=== PATIENT | male | born 1985 | race African-American/Black ===

== ENCOUNTER 2021-10-30 14:35 | Outpatient (CLI) | payer OTHER ==
--- NOTE | 2021-10-30 17:29 | MRI Report ---
PROCEDURE: Hip RT W/O INDICATIONS: RIGHT HIP PAIN TECHNIQUE: Noncontrast coronal T1 spin echo and STIR through the bony pelvis. Coronal and axial T2 fast spin ec ho with fat saturation, sagittal T1 spin echo, and oblique axial T2 fast spin echo with fat saturatio n through the hip. COMPARISON: None. FINDINGS: Image quality: Diagnostic. Bones and joints: Bone marrow of the pelvic ring and proximal femurs demonstrate normal overall sign al. No bone contusions or fractures. No suspicious intraosseous lesions. No avascular necrosis of th e femoral heads. No joint effusions. The visualized lower lumbar spine appears normally aligned. Tendons: The gluteus medius and minimus tendons appear intact, without associated muscle atrophy. T here is mild peritendinous edema along the distal gluteal tendons at the greater trochanter without a discrete loculated bursal fluid collection. The iliopsoas tendon appears intact, without adjacent bu rsal fluid collections. The origin of the hamstring tendon is intact at the ischial tuberosity. Labrum and cartilage: There is suspected mild tearing in the anterosuperior labrum with evaluation li mited in the absence of intra-articular contrast. Cartilage surface of the femoral head demonstrates mild thinning superiorly. The alpha angle of the femur is within normal limits at less than 55 degre es. Soft tissues: Visualized muscles demonstrate normal bulk and internal signal. The proximal sciatic neurovascular bundle appears normal adjacent to the hamstring tendons. No free pelvic fluid. Bladde r wall thickness is normal. Genitourinary structures and bowel loops appear normal where visualized. IMPRESSION: 1. Suspected mild tearing in the anterosuperior labrum with evaluation limited in the absence of intr athecal contrast. Reviewed by: Carrillo Gusman MD on 10/30/2021 5:28 PM PST Approved by: Carrillo Gusman MD on 10/30/2021 5:28 PM PST Station ID: [id number]
== END 2021-10-30 14:36 | disposition home or self-care (01) ==
LOC: DI 14:35
PROVIDERS: ATTEND Student in an Organized Health Care Education/Training Program
DX: M25.551 Pain in right hip (principal)

== ENCOUNTER 2021-11-09 12:47 | Outpatient (CLI) | payer OTHER ==
[2021-11-09 13:39] VITALS: BP 132/74
--- NOTE | 2021-11-09 13:39 | SLEEP CARE CONSULTATION ---
Information from patient questionnaire entered by iBllie Acevedo MA. I have reviewed and concur with the information entered by Billie Acevedo MA. This document represents the service I personally performed and the decisions made by , Karen Lu ARNP. History of Present Illness Service Date and Time: 11/09/2021 1247 Reason for Visit: New patient (ONSET 09/2015, NO PRIORS,) Chief Complaint: reports: Insomnia, Snoring, Fatigue, Frequent awakenings at nig ht Date of Onset: 7 YEARS Usual bedtime: 1000 PM Time it takes to fall asleep: 5 MINUTE 1 HOUR Snores at night: Yes Observed to quit breathing while asleep: Yes Sleeps alone due to snoring: No Number of times waking at night: 2-3 Reasons for waking at night: reports: Choking, Snoring, Pain, Bathroom. denies: Gasping for air Toss, Turn, or Twitch while sleeping: Yes Recalls having dreams: Yes Usually gets out of bed at: 0630 Feels refreshed in the morning: No Morning headache: Yes Sleepy or fatigued during the day: Yes Ever fallen asleep while driving: No Takes day naps: Yes Dreams during day naps: No Prior sleep studies: No Additional HPI information: I had the pleasure of seeing MINNA WILSON today regarding the possibility of him having a sleep disorder. His current complaints are fatigue, frequent night awakenings, insomnia and snoring. The patient tells me that he normally goes to bed around 9:30-10 pm, and it takes him approximately 5-10 minutes to fall asleep. He has been told that he snores loudly and irregularly at night. He has not been observed to stop breathing in his sleep. His bed partner can still sleep in the same bed. She will wake up and get him to roll over to reduce snoring. He can recall waking up on the average of 2-3 times during the night. Most of the time he wakes up because of bathroom and unknown reasons. He has occasionally awakened for his own snoring or choking. There is a lot of tossing and turning in his sleep. Generally he can recall having dreams sometimes. He usually wakes up at 0730 to 0800 am and does not feel refreshed. He usually does have a morning headache at least once a week. During the day he complains of feeling sleepy and fatigued. He has never fallen asleep while driving nor has any accident due to sleepiness. He has had some drowsy driving and will wool puller and take a nap. He usually naps for about 45 minutes to 1.5 hours during the day. If he naps, upon falling asleep during the day he denies having vivid dreams. There is somniloquy (sleep talking) but no somnambulism (sleep walking). He has never experienced sleep paralysis. He states his right leg is numbs since June 2021, his sciatic nerve is pinched due to issue with back and hip. He reports having impaired concentration during the day sometimes, not often. - Parasomnia Symptoms Ever been unable to move upon waking from sleep: Yes Walks in sleep: No Talks in sleep: Yes Ever acted out dreams in sleep: Yes Ever felt weak in the knees when startled or emotional: No Bothered by creepy, crawly, restless sensations in legs: Yes Problems with memory or concentration: Yes Subjective Initial [place] Sleepiness Scale score: 9 (2021) Past Medical History Past Medical History: reports: Arthritis, Anxiety, Depression, Other (sciatic pain/numbness of right leg) Social History The patient's occupation is a [employer]. Patient is Legally and lives in . Have you smoked in the past 12 months: Yes (vapes occasionally, no cigarettes for last year) Cigarettes per day (20/pack): 10 Years of smokin Quit date: 2020 Smoking Pack Years: 3.5 Alcohol use: Yes Alcohol amount and frequency: 3 X WEEKLY Caffeine use: No Family History Family history of sleep disordered breathing: No Family Hx Sleep Apnea: Mother: Snoring Allergies and Home Medications Known drug allergies: No Drug allergies reviewed: Yes Home medication list reviewed: Yes (no daily medication or supplements) Allergy and home medication list: Allergies No Known Drug Allergies Allergy (Verified 11/07/21 14:28) Review of Systems Weight loss over past 5 years: 10-15 loss due to depression Cardiovascular: reports: chest pain. denies: high blood pressure Respiratory: reports: shortness of breath Gastrointestinal: denies: heartburn Neurological: reports: headaches Psychiatric: reports: anxiety, depression Ear/Nose/Throat: reports: wisdom teeth removed. denies: injury to nose, tonsillectomy Endocrine: denies: thyroid disease Musculoskeletal: reports: back pain, other (LEG NUMBNESS DUE TO HIP SCIATICA) Immunologic: denies: allergies to food or environment Physical Exam Vital signs obtained and entered by: BALWINDER FERNANDEZ Blood Pressure: 132/74 (left, pulse 63, resp 16) Cuff size: wrist Heart Rate: 100 (cloth mask) O2 Saturation: 92 Height: 6 ft Weight: 173 lb Weight change since last visit: trying to gain weight Body Mass Index: 23.4 BMI Classification: Healthy weight Neck circumference: 16 (inches) Mouth and throat: narrow oropharynx Soft palate: long Hard palate: normal Uvula visualization: 50% Mallampati Class II Tongue: enlarged in size with teeth jackson on lateral edges Tonsils: small Neck: normal w/o lymphadenopathy or thyromegaly Heart: regular rate and rhythm Lungs: clear bilaterally Impression and Plan 1. Suspected Obstructive Sleep Apnea-Hypopnea Syndrome, as suggested by a history of loud and irregular snoring, observed cessation of breath while asleep, gasping or choking in sleep, morning headache, frequent awakening during the night, unrefreshed sleep, cognitive impairment, and excessive daytime sleepiness. Narrow oropharynx and obesity are common predisposing factors for obstructive sleep apnea-hypopnea syndrome. I recommend proceeding to polysomnography to confirm the diagnosis and to assess severity. If the patient has significant sleep disordered breathing, a manual CPAP titration study will also be performed to find the optimal treatment pressure. I informed the patient of what the sleep studies involve and after some discussion, obtained agreement to proceed. The pathophysiology of obstructive sleep apnea-hypopnea syndrome was discussed with the patient and health risks of cardiovascular and cerebrovascular disease if not treated. AASM brochure for obstructive sleep apnea-hypopnea syndrome given and reviewed. Risks of drowsy driving discussed in detail and patient advised to avoid long distance driving and to wool puller at the first sign of drowsiness. Patient agreed to plan. * Schedule polysomnography +- manual CPAP titration study and return in 1-2 weeks after the study to discuss result and initiate therapy. * Avoid long distance driving or driving when feeling sleepy. * Avoid alcohol, sedative and muscle relaxant around bedtime. * Attempt to lose weight. * Review instructions provided by trained office staff on how to prepare for the sleep study. * Return for follow-up after sleep study completed. Counseling Topics: Weight control Visit Type: In Office Time Spent with Patient (minutes): 32 Provider Statement: I spent 100% of the Face to Face Visit with the patient with greater than 50% spent counseling the patient and coordination of care.
== END 2021-11-09 12:48 | disposition home or self-care (01) ==
LOC: SC 12:47
PROVIDERS: ATTEND Nurse Practitioner Family
DX: R06.83 Snoring (principal); G47.8 Other sleep disorders; R51.9 Headache, unspecified; G47.10 Hypersomnia, unspecified; R41.89 Other symptoms and signs involving cognitive functions and awareness; R06.81 Apnea, not elsewhere classified; F17.290 Nicotine dependence, other tobacco product, uncomplicated
CPT/HCPCS: 99203; 99212

== ENCOUNTER 2021-11-16 10:04 | Day surgery (SDC) | payer OTHER ==
[2021-11-16] MEDS ORDERED: LACTATED RINGERS 1,000 ML IV ONE ×2 (10:16→12:40)
[2021-11-16] MEDS ORDERED: LIDOCAINE 2%-EPI 1:100000 20 ML MDV ONE (11:23)
[2021-11-16] MEDS ORDERED: BUPIVACAINE 0.5% PF 10 ML VIAL ONE (11:24)
[2021-11-16] MEDS ORDERED: BUPIVACAINE 0.5% PF 30 ML VIAL INFIL ONE ×2 (11:30)
[2021-11-16] MEDS ORDERED: LIDOCAINE 2%-EPI 1:100000 20 ML MDV SUBQ ONE ×2 (11:30)
[2021-11-16] MEDS ORDERED: HYDROmorphone 0.5 MG/0.5 ML SYRINGE IVP PRN (11:31)
[2021-11-16] MEDS ORDERED: ePHEDrine 50 MG/ML VIAL IVP PRN (11:31)
[2021-11-16] MEDS ORDERED: fentaNYL 100 MCG/2 ML VIAL IVP PRN (11:31)
[2021-11-16] MEDS ORDERED: NALOXONE 0.4 MG/ML VIAL IVP PRN (11:31)
[2021-11-16] MEDS ORDERED: ATROPINE ABBOJECT 1 MG/10 ML SYRINGE IVP PRN (11:31)
[2021-11-16] MEDS ORDERED: METOCLOPRAMIDE 10 MG/2 ML VIAL IVP PRN (11:31)
[2021-11-16] MEDS ORDERED: MORPHINE 2 MG/ML CARPUJECT IVP PRN (11:31)
[2021-11-16] MEDS ORDERED: ONDANSETRON 4 MG/2 ML VIAL IVP PRN (11:31)
--- NOTE | 2021-11-16 11:31 | ANESTHESIA ---
Pre-Anesthesia VS, & Labs - Diagnosis forehead lipoma @R - Procedure removal of same Vital Signs: Temp Pulse Resp BP Pulse Ox 37.1 C 66 14 137/100 H 99 11/16/21 10:32 11/16/21 10:32 11/16/21 10:32 11/16/21 10:32 11/16/21 10:32 Height: 6 ft Weight (kg): 79 kg Body Mass Index: 23.6 BMI Classification: Healthy weight - NPO >8 hours - Lab Results Lab results reviewed: Yes Home Medications and Allergies Home Medications: Ambulatory Orders No Known Home Medications 11/07/21 No Known Home Medications 11/07/21 Allergies/Adverse Reactions: Allergies Allergy/AdvReac Type Severity Reaction Status Date / Time No Known Drug Allergies Allergy Verified 11/07/21 14:28 Anes History & Medical History - Anesthetic History Anesthesia Complications: reports: No previous complications Family history of Anesthesia Complications: Denies Family history of Malignant Hyperthermia: Denies - Medical History Cardiovascular: reports: None Pulmonary: reports: None, Sleep apnea (study pending) Gastrointestinal: reports: None Urinary: reports: None Musculoskeletal: reports: Chronic back pain Skin: reports: Other Smoking Status: Current some day smoker (vape) Psychosocial: reports: Alcohol - Surgical History Other Past Surgical History: wisdom teeth Exam General: Alert, Oriented x3 Dental: WNL Mouth Openin Fingerbreadth Neck Mobility: Normal Mallampati classification: II Thyromental Distance: 4-6 cm Respiratory: Lungs clear, Normal breath sounds, No respiratory distress Cardiovascular: Regular rate Neurological: Normal speech Mental/Cognitive Status: Alert/Oriented X3, Normal for patient Cognitive Status: Within normal limits Plan Anesthesia Type: General Consent for Procedure(s) Verified and Reviewed: Yes Code Status: Attempt Resuscitation ASA classification: 2-Mild systemic disease Is this case an emergency?: No
[2021-11-16] MEDS ORDERED: PROPOFOL 200 MG/20 ML VIAL IVP ONE (11:33)
[2021-11-16] MEDS ORDERED: MIDAZOLAM 2 MG/2 ML VIAL ONE (11:33)
[2021-11-16] MEDS ORDERED: LIDOCAINE-MPF 2% 5 ML VIAL ONE (11:33)
[2021-11-16] MEDS ORDERED: fentaNYL 100 MCG/2 ML VIAL ONE (11:33)
--- NOTE | 2021-11-16 11:36 | HISTORY & PHYSICAL EXAMINATION ---
Chief Complaint - Chief Complaint Chief Complaint: growing and now painful lump right forehead History of Present Illness - History Obtained From Records Reviewed: yes History obtained from: pt Exam Limitations: none - History of Present Illness HPI Comment/Other: growing and now painful forehead lipoma History - Past Medical History Cardiovascular: reports: None Respiratory: reports: None, Sleep apnea (study pending) GI: reports: None : reports: None HEENT: reports: None Psych: reports: Depression Musculoskeletal: reports: Chronic back pain Derm: reports: Other MRSA Hx?: No - Past Surgical History Other past surgical history: wisdom teeth Meds/Allgy - Home Medications Home Medications: Ambulatory Orders Medication Instructions Recorded Confirmed No Known Home Medications 11/07/21 11/07/21 - Allergies Allergies/Adverse Reactions: Allergies Allergy/AdvReac Type Severity Reaction Status Date / Time No Known Drug Allergies Allergy Verified 11/07/21 14:28 Review of Systems - Other Findings Other Findings: 10 pt ros as above otherwise unremarkable Exam - Vital Signs Reviewed Vital Signs: Yes Vital Signs: Vital Signs x48h Temp Pulse Resp BP Pulse Ox 11/16/21 10:32 37.1 C 66 14 137/100 H 99 - Physical Exam General Appearance: positive: Alert Eyes Bilateral: positive: PERRL, EOMI ENT: positive: No signs of dehydration, Other (3 cm right forehead lipoma) Respiratory: positive: No respiratory distress, Breath sounds nml Cardiovascular: positive: Regular rate & rhythm Abdomen: positive: Non-tender, No distention Neurologic/Psychiatric: positive: Oriented x3 Conclusion/Plan - Problem List (1) Lipoma of forehead Conclusion/Plan: plan excision. parq held and consent obtained - Lab Results Lab results reviewed: Yes
[2021-11-16] MEDS ORDERED: DEXAMETHASONE 4 MG/ML VIAL ONE (12:00)
[2021-11-16] MEDS ORDERED: LACTATED RINGERS 1,000 ML IV SCH (12:00)
[2021-11-16] MEDS ORDERED: HYDROcod/ACETAM 5/325 MG TABLET PO PRN (12:39)
--- NOTE | 2021-11-16 12:43 | OPERATIVE REPORT ---
Operative Report - General Procedure Date: 11/16/21 Planned Procedure: excision right forehead 3 cm lipoma Pre-Op Diagnosis: forehead lipoma Procedure Performed: excision 3 cm right forehead lipoma 3 cm intermediate repair forehead Post Op Diagnosis: same - Procedure Note Primary Surgeon: corina gray Anesthesia Technique: General LMA, Local Pathology: not sent/ benign Estimated Blood Loss (mL): 0 Drain/Tube Type: Other (none) Indications: growing and painful lipoma Findings: as above Complications: none - Other Other Information/Narrative: The patient was properly identified brought to the operating room and placed in supine position. Laryngeal mask anesthesia was induced. He was prepped and draped in a sterile fashion. Antibiotics were not given. A 3 cm incision was made directly over the lipoma. Dissection proceeded with needle point cautery. Frontalis musculature was opened. The lipoma was removed in its entirety with gentle retraction and combination of sharp dissection and cutting current cautery. Hemostasis was assured. Musculature was closed with interrupted 4-0 Vicryl suture. Buried interrupted subdermal 4-0 Vicryl sutures were then placed. Epidermis was closed with a running 6-0 Prolene suture. Steri-Strips were placed. He tolerated the procedure well was awakened and brought to recovery in good condition.
[2021-11-16 13:31] VITALS: BP 129/92
--- NOTE | 2021-11-16 17:07 | ANESTHESIA POST OP EVALUATION ---
Anesthesia Post Eval - Post Anesthesia Eval Vitals: Last Vital Signs Temp 36.3 C L 11/16/21 13:15 Pulse 52 L 11/16/21 13:15 Resp 16 11/16/21 13:15 BP 129/92 H 11/16/21 13:15 Pulse Ox 100 11/16/21 13:15 CV Function Including HR & BP: Stable Pain Control: Satisfactory Nausea & Vomiting: Negative Mental Status: Baseline Respiratory Status: Airway Patent Hydration Status: Satisfactory Anesthesia Complications: None
== END 2021-11-16 10:05 | disposition home or self-care (01) ==
LOC: SDS 10:04
PROVIDERS: ATTEND Surgery
DX: D17.0 Benign lipomatous neoplasm of skin and subcutaneous tissue of head, face and neck (principal); G47.30 Sleep apnea, unspecified; F17.290 Nicotine dependence, other tobacco product, uncomplicated; F32.A Depression, unspecified; G89.29 Other chronic pain; M54.9 Dorsalgia, unspecified
CPT/HCPCS: 21014; J7120

== ENCOUNTER 2021-11-22 08:17 | Outpatient (CLI) | payer OTHER | END 2021-11-22 08:18 | disposition home or self-care (01) | LOC: SC 08:17 | PROVIDERS: ATTEND Nurse Practitioner Family | DX: R06.83 Snoring (principal); R06.81 Apnea, not elsewhere classified; R51.9 Headache, unspecified; G47.8 Other sleep disorders; G47.10 Hypersomnia, unspecified; R41.89 Other symptoms and signs involving cognitive functions and awareness | CPT/HCPCS: 95806 ==

== ENCOUNTER 2021-12-20 09:44 | Outpatient (CLI) | payer OTHER ==
--- NOTE | 2021-12-20 09:35 | SLEEP CARE CONSULTATION ---
Information from patient questionnaire entered by Billie Acevedo MA. I have reviewed and concur with the information entered by Billie Acevedo MA. This document represents the service I personally performed and the decisions made by , Karen Lu ARNP. History of Present Illness Service Date and Time: 12/20/2021 0920 Initial [facility] Sleepiness Scale score: 9 Current [facility] Sleepiness Scale score: 9 Additional HPI information: MINNA WILSON returns via video telehealth visit for follow up and results of the recently performed home sleep study. The patient was informed of the following findings: No significant sleep di sordered breathing with an average AHI of 2.9 and joseph oxygen saturation of 90%. It appears that this is a fair study because of there was loss of the airflow signal 3 hours after study was begun. This study may not be accurate due to signal loss and study may need to be repeated. I explained the pathophysiology behind obstructive sleep apnea. Patient does not have sleep apnea and was advised how weight gain could increase the risk of developing sleep apnea in the future. Patient counseled not drink alcohol less than 4 hours before bedtime as it can increase snoring and apnea. Patient was cautioned about risks of drowsy driving until sleepiness symptoms resolve. Sleep Study - Results Type of Sleep Study: Home sleep study (F/U HOME STUDY, 11/22/21 [facility],) Prior sleep studies: No Polysomnography/Home Sleep Study results: Physician Impression: The quality of the study is fair due to loss of airflow signal just 3 hours into the test. The length of the useful data is inadequate (< 240 minutes). Please also see the tabulated and graphic data. 1. No significant sleep disordered breathing, with an AHI of 2.9/hr and joseph SaO2 of 90%. During the study, the patient had 1 apnea (1 obstructive, 0 central, 0 mixed) and 6 hypopneas. The longest episode lasted 87.0 seconds. The few respiratory events occurred more frequently during supine sleep (supine AHI was 4.3 and non-supine, 1.01). Allergies and Home Medications Home medication list reviewed: Yes (no changes) Allergy and home medication list: Allergies No Known Drug Allergies Allergy (Verified 11/07/21 14:28) Review of Systems Review of systems same as previous: Yes (no changes) Physical Exam Vital signs obtained and entered by: Chetna ACEVEDO CMA AAMA Height: 6 ft Weight: 175 lb Body Mass Index: 23.7 BMI Classification: Healthy weight Impression and Plan 1. Suspected Obstructive Sleep Apnea-Hypopnea Syndrome, as suggested by a history of loud and irregular snoring, observed cessation of breath while asleep. Patient completed a home study for which he came in for follow-up. The night of the study the patient lost airflow signal and this test may not be accurate. I recommend proceeding to polysomnography to confirm the diagnosis and to assess severity. Patient is currently in [place] and no longer in the . I encouraged him to follow-up there and have another sleep study done, I advised getting a in lab polysomnograph. He voiced understanding and will pursue further evaluation in his area. * Seek re-evaluation due to HST being sub-optimal and possibly inaccurate. * Maintain a healthy weight * Avoid alcohol consumption near bedtime * The patient is cautioned about driving until sleepiness is completely resolved. * Return as needed for follow up. Follow up with [facility] in: other (in new location for further evaluation) Visit Type: Telehealth Video Video Type: Doximity Patient Location: Home Location of Provider: Office Patient agrees and consents to this telehealth visit type: Yes Patient agrees to have their insurance billed: Yes Time Spent with Patient (minutes): 13 Provider Statement: I spent 100% of the Telehealth Video Call with the patient with greater than 50% spent counseling the patient and coordination of care.
== END 2021-12-20 09:45 | disposition home or self-care (01) ==
LOC: SC 09:44
PROVIDERS: ATTEND Nurse Practitioner Family
DX: R06.83 Snoring (principal); G47.8 Other sleep disorders; R06.81 Apnea, not elsewhere classified; R51.9 Headache, unspecified; G47.10 Hypersomnia, unspecified; R53.83 Other fatigue; F32.A Depression, unspecified